=== PATIENT | female | born 1945 | race Caucasian/White ===

== ENCOUNTER → 2020-12-05 | Outpatient (CLI) | payer MEDICARE ==
[~2020-12-05] MED LIST: ASCO500T8 PO; BETA1CAP2 PO; CEPH-368 PO; ESTR42.53 VG; LACT1CAP4 PO; LATA2.5D4 EACHEYE; MULT-6 PO; OMEGA FISH OIL PO; OXYC1TAB14 PO; POLY17PO5 PO; TRAV5DRO EACHEYE; VIT1TABL32 PO; [UNRECOGNIZED DRUG - OTHER]; calcium citrate PO; collagen PO; hair skin nails PO
== END | disposition home or self-care (01) ==
LOC: STAR 12:00
PROVIDERS: ATTEND Internal Medicine Gastroenterology
DX: Z01.818 Encounter for other preprocedural examination (principal); K90.0 Celiac disease; I49.1 Atrial premature depolarization; Z20.822 Contact with and (suspected) exposure to COVID-19; Z80.0 Family history of malignant neoplasm of digestive organs
CPT/HCPCS: 93005; U0003; U0005

== ENCOUNTER 2020-12-11 06:25 | Day surgery (SDC) | payer MEDICARE ==
[~2020-12-11] VITALS: Ht 160 cm; Wt 54.8 kg
[2020-12-11] MEDS ORDERED: LACTATED RINGERS 1,000 ML IV SCH (07:00)
[2020-12-11] MEDS ORDERED: CHLORHEXIDINE 15 ML UDC PO ONE (07:00)
[2020-12-11 07:02] VITALS: BP 105/69
[2020-12-11] MEDS ORDERED: PROPOFOL 50 ML ONE (07:29)
[2020-12-11] MEDS ORDERED: ACETAMINOPHEN 325 MG TABLET PO PRN (08:00)
[2020-12-11] MEDS ORDERED: ONDANSETRON 2MG/ML, 2ML IVPush PRN (08:00)
[2020-12-11] MEDS ORDERED: FENTANYL PF 100 MCG/2ML IV PRN (08:00)
[2020-12-11] MEDS ORDERED: hydrALAzine 20 MG/ML, 1ML IV PRN (08:00)
[2020-12-11] MEDS ORDERED: PROMETHAZINE 25 MG/ML, 1ML IVPush PRN (08:00)
[2020-12-11] MEDS ORDERED: LABETALOL 5MG/ML, 20ML IV PRN (08:00)
[2020-12-11] MEDS ORDERED: EPHEDRINE 50 MG/ML, 1ML IVPush PRN (08:00)
[2020-12-11] MEDS ORDERED: EPHEDRINE 50 MG/ML, 1ML ONE (08:46)
== END 2020-12-11 10:00 | disposition home or self-care (01) ==
LOC: OR 06:25
PROVIDERS: ATTEND Internal Medicine
DX: D12.2 Benign neoplasm of ascending colon (principal); K90.0 Celiac disease; K57.30 Diverticulosis of large intestine without perforation or abscess without bleeding; K64.8 Other hemorrhoids; H40.9 Unspecified glaucoma; Z98.890 Other specified postprocedural states; Z72.89 Other problems related to lifestyle; Z79.899 Other long term (current) drug therapy; Z80.0 Family history of malignant neoplasm of digestive organs; Z88.5 Allergy status to narcotic agent; Z87.891 Personal history of nicotine dependence
CPT/HCPCS: 45381; 45385; 88305; J2704; J7120